=== PATIENT | female | born 1975 | race Caucasian/White ===

== ENCOUNTER → 2016-12-28 | Outpatient (CLI) | payer BC ==
[~2016-12-28] MED LIST: ACET-1175 PO; NAPR1TAB9 PO
[2016-12-30 14:29] LABS: QUANTIF TB AG-NIL <0.00 IU/ML; QUANTIFERON NIL 0.08 IU/ML
== END | disposition home or self-care (01) ==
LOC: C.LAB 13:45
PROVIDERS: ATTEND Internal Medicine
DX: Z20.1 Contact with and (suspected) exposure to tuberculosis (principal)

== ENCOUNTER → 2017-01-06 | Outpatient (CLI) | payer BC ==
--- NOTE | 2017-01-06 16:37 | DIAGNOSTIC IMAGING REPORT ---
TWO VIEW CHEST CLINICAL HISTORY: Fever. Sore throat. Atypical chest pain. FINDINGS: PA and lateral chest radiographs are compared to chest x-ray and chest CT dated 09/18/2015. The cardiomediastinal silhouette is unremarkable. The lungs and pleural spaces are clear. There is no pneumothorax. The bony thorax appears intact. IMPRESSION: No active disease in the chest. Electronically signed by: Marlon Hanson M.D. 01/06/2017 4:36 PM Dictated Date/Time: 01/06/2017 4:35 PM
== END | disposition home or self-care (01) ==
LOC: C.RAD 16:00
PROVIDERS: ATTEND Internal Medicine
DX: Z20.1 Contact with and (suspected) exposure to tuberculosis (principal)

== ENCOUNTER 2022-10-13 08:32 | Inpatient (IN) ==
--- NOTE | 2022-09-25 11:41 | PAT Medication Instructions ---
Medication Instructions Date of Service September 25, 2022 Home Medications cholecalciferol (vitamin D3) 50 mcg (2,000 unit) capsule 50 mcg PO HS melatonin 1 mg tablet 2 mg PO HS PRN valacyclovir 1 gram tablet 1,000 mg PO HS Take evening before surgery cholecalciferol (vitamin D3) 50 mcg (2,000 unit) capsule 50 mcg PO HS melatonin 1 mg tablet 2 mg PO HS PRN(if needed) valacyclovir 1 gram tablet 1,000 mg PO HS Other Notes NOTHING TO EAT OR DRINK AFTER MIDNIGHT. If you have any questions please call us at [phone] or [phone] or [phone] or [phone]
--- NOTE | 2022-09-29 11:07 | Anesthesiology Consultation ---
Date of Service September 29, 2022 Assessment & Plan (1) Encounter for pre-operative examination: - check urine test STAT am DOS. - Patient requests Dr. Banks. OR aware, message sent to anesthesia schedulers. Chart Review Chart Review: Acceptable Risk for Surgery and Patient seen in Pre Admission Testing Teaching & Discussion Pre-Anesthesia Teaching/Discussion Notes: Instructed NPO after midnight before surgery, except medications with 15 cc of water. Medication instructions provided according to the PAT guidelines. History Surgery Operation Date: 10/13/22 07:40 Proposed Procedures p L4-L5 Decompression and Fusion, Spinal Cord Monitoring - Jasen Pressley DO Height/Weight Height: 5 ft Weight: 52.3 kg Allergies Allergy/AdvReac Type Severity Reaction Status Date / Time nickel Allergy Mild dermatitis Verified 09/21/22 14:31 Medications Home Medications Medication Instructions Recorded Confirmed Last Taken cholecalciferol (vitamin D3) 50 50 mcg PO HS 02/09/20 09/21/22 02/10/20 mcg (2,000 unit) capsule melatonin 1 mg tablet 2 mg PO HS PRN Sleep 09/21/22 09/21/22 Unknown valacyclovir 1 gram tablet 1,000 mg PO HS 09/21/22 09/21/22 Unknown Past Medical History Medical History (Updated 09/29/22 @ 11:16 by Peggy Ojeda PA-C) Chronic back pain Constipation Degenerative disc disease History of anemia Migraine hx Patient denies h/o stroke, seizures, heart attack, heart failure, DM, HTN, blood clots or blood transfusions. Exercise / Class Metabolic Activity II 4-5 Yardwork/Stairs/Walk up hill (denies chest discomfort or shortness of breath with 1 FOS) Past Family History Family History Father Myocardial infarction Mother Myocardial infarction Other Coronary heart disease Hypertension No family history of adverse response to anesthesia Obesity Denies family history of Ovarian cancer Prostate cancer Breast cancer Colorectal cancer Past Surgical History Surgical History History of section x2 History of colonoscopy History of rectal surgery anal sphincter repair. S/P epidural steroid injection Foster teeth extracted Past Anesthesia History No Hx of Anesthesia Complications and No Family Hx of Anesthesia Complications History of PONV History of PONV (with ) and Hx of Motion Sickness Social History Smoking Status: Never smoker Do You Dip or Chew Tobacco: No Hx Alcohol Use: No Hx Substance Use: No substance use type: does not use Review of Systems Patient denies chest pain, shortness of breath, dyspnea on exertion, snoring, witnessed apneas, reflux, fever, chills, cough, wheezing, or palpitations. Physical Exam Vital Signs Vitals BP 117/79 P 65 SP02 98% on RA RESP 17 Physical Full cervical extension range of motion with slight pain at maximum extension TMD 3.5 finger breadths Mallampati Score 1 Dentition: one crown, denies chipped or loose teeth, caps, implants or bridges Lungs: normal respiratory effort. Good air movement, clear throughout to auscultation, no adventitious breath sounds Cardiac: regular rate and rhythm, no murmurs noted Carotid arteries: negative bruit bilat Lab Results Anesthesia Preop Results Results Anesthesia Widget: WBC 4.99 K/ul (4.8-10.8) 09/29/22 Hgb 12.3 g/dl (12.0-16.0) 09/29/22 Hct 37.1 % (37.0-47.0) 09/29/22 Plt 223 K/uL (130-400) 09/29/22 Na 137 mmol/L (136-145) 09/29/22 K 3.9 mmol/L (3.5-5.1) 09/29/22 Cl 105 mmol/L (98-107) 09/29/22 CO2 27 mmol/L (21-32) 09/29/22 BUN 12 mg/dl (6-23) 09/29/22 Creat 0.49 mg/dl (0.6-1.2) L 09/29/22 Glucose Level 83 mg/dl (70-99(Fasting)) 09/29/22 PT 10.7 Seconds (9.0-12.0) 09/29/22 PTT 27.4 Seconds (21.0-31.0) 09/29/22 INR 1.0 (0.9-1.1) 09/29/22 Urine Color Yellow 09/29/22 Urine Appearance Clear (Clear) 09/29/22 Urine pH 7.5 (4.5-7.5) 09/29/22 Urine Specific [place] 1.009 (1.000-1.030) 09/29/22 Urine Protein Negative (Negative) 09/29/22 Urine Glucose (UA) Negative (Negative) 09/29/22 Urine Ketones Negative (Negative) 09/29/22 Urine Blood Negative (Negative) 09/29/22 Urine Nitrite Negative (Negative) 09/29/22 Urine Bilirubin Negative (Negative) 09/29/22 Urine Urobilinogen Negative (Negative) 09/29/22 Urine Leukocyte Esterase Negative (Negative) 09/29/22 Blood Type O Positive 09/29/22 Antibody Screen NEGATIVE 09/29/22 Testing Electrocardiogram Date: 09/29/22 NSR, rate 62 bpm Chest X-Ray Date: 09/29/22 No acute chest disease COVID-19 Risk Screen Screening Information COVID-19 Screen Date: 09/29/22 Exposure 21 Days Family/Household +COVID Last 21 Days: No Exposure 10 Days Any COVID Exposure Last 10 Days: No Symptoms Last 10 Days Experienced COVID Sx Last 10 Days: No + COVID 0-90 Days COVID + in Last 0-90 Days: No
[~2022-10-13 08:32] MED LIST changes: -ACET-1175 PO; +ACETAMINOPHEN 500 MG TAB PO SCH; +CeleBREX 200 MG CAP PO SCH; +DEXAMETHASONE SOD INJ 4 MG/ML VIAL ONE; +GABAPENTIN 900 MG DOSE PO SCH; +LIDOCAINE 2% 2 ML VIAL/AMP(20MG/ML) INFIL ONE; +LR 15ML/HR IV SCH; +MIDAZOLAM HCL 1 MG/ML 2ML VIAL ONE; -NAPR1TAB9 PO; +ONDANSETRON INJ 2 MG/ML 2 ML VIAL ONE; +PROPOFOL IV EMULSION 10 MG/ML 20 ML VIAL IV ONE; +ROCURONIUM BROMIDE 10 MG/ML 5 ML VIAL IV ONE; +ceFAZolin 2000MG 2,000 MG/15 ML SYR IV SCH; +diphenhydrAMINE 50 MG/ML VIAL ONE; +fentaNYL citrate PF 100 MCG/2 ML VIAL ONE
[2022-10-13] MEDS ORDERED: fentaNYL citrate PF 100 MCG/2 ML VIAL IV PRN (09:25)
[2022-10-13] MEDS ORDERED: ATROPINE SULFATE 0.1 MG/ML 10ML SYR IV PRN (09:25)
[2022-10-13] MEDS ORDERED: ONDANSETRON INJ 2 MG/ML 2 ML VIAL IV PRN ×2 (09:25→12:51)
[2022-10-13] MEDS ORDERED: HYDROmorphone INJ 1 MG/ML SYRINGE IV PRN ×2 (09:25→12:51)
[2022-10-13] MEDS ORDERED: PROMETHAZINE HCL 6.25 MG in SODIUM CHLORIDE 0.9% 50 ML IV PRN (09:25)
[2022-10-13] MEDS ORDERED: ePHEDrine sulfate 50 MG/ML AMP IV PRN (09:25)
[2022-10-13] MEDS ORDERED: SCOPOLAMINE 1 MG TDSY TD STA (09:27)
--- NOTE | 2022-10-13 09:29 | History & Physical Bridge Note ---
Date of Service October 13, 2022 History & Physical Bridge Note I have examined the patient, reviewed the History & Physical and in the interval since the performance of the History & Physical I have noted the following changes of clinical significance: no changes noted
--- NOTE | 2022-10-13 09:30 | History & Physical Report ---
Date of Service October 13, 2022 Assessment & Plan (1) Neurogenic claudication due to lumbar spinal stenosis: Plan: L4-L5 decompression and fusion History of Present Illness Chief Complaint: Chronic persistent back pain Primary Care Provider: Alta Allen MD This is a 47-year-old female presents with chronic persistent back pain after failing extensive course of nonoperative care she is here for surgical invention. Allergies Allergy/AdvReac Type Severity Reaction Status Date / Time nickel Allergy Mild dermatitis Verified 10/13/22 08:48 Home Medications Medication Instructions Recorded Confirmed Type cholecalciferol (vitamin D3) 50 50 mcg PO HS 02/09/20 10/13/22 History mcg (2,000 unit) capsule melatonin 1 mg tablet 2 mg PO HS PRN Sleep 09/21/22 10/13/22 History valacyclovir 1 gram tablet 1,000 mg PO HS 09/21/22 10/13/22 History Past Med/Surg History Medical History Chronic back pain Constipation Degenerative disc disease History of anemia Migraine Surgical History History of section History of colonoscopy History of rectal surgery S/P epidural steroid injection [place] teeth extracted Family History Father Myocardial infarction Mother Myocardial infarction Other Coronary heart disease Hypertension No family history of adverse response to anesthesia Obesity Denies family history of Ovarian cancer Prostate cancer Breast cancer Colorectal cancer Social History Smoking Status: Never smoker Second Hand Exposure: No; Do You Dip or Chew Tobacco: No; Tobacco Cessation Education Requested by Patient: No Hx Alcohol Use: No Hx Substance Use: No Preferred Language: Kazakh Communication Ability: Effective 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 Beliefs That Will Affect Care: None marital status: Current Living Situation: Spouse and Family Current Living Situation Comment: and x2 sons current occupational status: employed Other Information That Helps Us Care for You: No Feels Safe at Home: Yes Safety Concerns: Feels Safe At This Time Childhood Exposure to Second-Hand Smoke: No Dental Care, Regularly: Yes Physical Activity Frequency: Daily Seatbelt Use: always Sunscreen Use: Yes Assistive Devices: None Physical Exam Physical Exam: Patient is alert and oriented Heart regular rhythm Lungs clear Results & Data Results & Data Vital Signs (Past 12 Hours) Vital Signs Temp Pulse Resp BP Pulse Ox O2 Del Method 10/13/22 08:51 36.5 C 72 13 152/89 H 98 Room Air
[2022-10-13] MEDS ORDERED: BUPIVACAINE/EPINEPHRINE 0.5% MPF 1:200,000 30 ML VIAL ONE (09:33)
[2022-10-13] MEDS ORDERED: ceFAZolin 330 MG/ML 1 GM VIAL ONE (09:33)
[2022-10-13] MEDS ORDERED: FAMOTIDINE/PF 20 MG/2 ML VIAL IV ONE (09:51)
[2022-10-13] MEDS ORDERED: HYDROmorphone INJ 2 MG/ML SYR/VIAL ONE (10:22)
[2022-10-13] MEDS ORDERED: FLOSEAL HEMOSTATIC MATRIX 10ML TOP ONE (10:47)
[2022-10-13] MEDS ORDERED: GLYCOPYRROLATE 0.2 MG/ML VIAL ONE (11:03)
[2022-10-13] MEDS ORDERED: NEOSTIGMINE METHYLSULFATE 1 MG/ML 10ML VIAL ONE (11:03)
[2022-10-13] MEDS ORDERED: ONDANSETRON INJ 2 MG/ML 2 ML VIAL ONE (11:03)
--- NOTE | 2022-10-13 11:10 | Operative Report ---
Post Operative Report Pre & Post Diagnosis Operation Date: 10/13/22 10:00 Pre-Op Diagnosis: Neurogenic claudication due to lumbar spinal stenosis Post-Op Diagnosis: Neurogenic claudication due to lumbar spinal stenosis I identified the patient and participated in the time-out.: Yes Procedure Operation Date: 10/13/22 10:00 Actual Procedures #1 lumbar decompression bilateral medial facetectomies and foraminotomies L4-5 #2 posterior spinal fusion L4-5 #3 placement of posterior instrumentation L4-5 #4 interbody fusion L4-5 #5 placement of Spira 10 x 22 mm cage at L4-L5. #6 placement locally harvested morselized autograft in the posterior gutters. #7 placement of I factor, LP times in the interbody space and posterior lateral gutters. Surgeon Jasen Pressley, Manager Project Zoe Weinstein Estimated Blood Loss 20 Findings Consistent with Post-Op Diagnosis Specimens None Indications This is a 47-year-old female presents above-mentioned diagnosis after failed course of nonoperative care she is here for surgical invention. Description of Procedure Patient was met with identified informed consent obtained. Patient was then taken to the operative suite underwent a patient placed in a prone position the [facility] top Rico frame. All bony promises well-padded eyes inspected to ensure no external pressure placed upon the. This point the lumbar spine was prepped and draped in a sterile fashion. Sharp dissection with the assistance of Bovie cautery performed down to and exposing the lamina and transverse processes of L4-L5. From caudal cephalad fashion complete laminectomy of L4 was performed including bilateral medial facetectomy and foraminotomies addressing all neural compression and stenosis. Pedicle screws were placed in L4-L5 bilaterally with assistance of fluoroscopy and by way of a transforaminal approach on the left complete discectomy L4-L5 was performed endplates curetted to subcortical bleeding bone and a 10 x 22 mm Spira cage filled with I factor tapped in position. Proper size rods were then placed and locked into position bilaterally. The transverse processes of L4 L5 burred to subcortically and bone. I factor combined with V toss was then placed in the posterior gutters. 10 round KAYLA drain inserted. The incision was then closed with 1 Vicryl to fascia 2-0 Vicryl subcutaneously and 4 Monocryl for final skin closure. Steri- Strips sterile dressings placed. Patient waken taken to PACU in stable condition. Please note spinal cord monitoring was last at the procedure no changes noted. Lastly Zoe Weinstein was present at the entire procedure involved in patient positioning complex portions of the surgery and final skin closure. I attest to the content of the Intraoperative Record and any orders documented therein. Any exceptions are noted below.
[2022-10-13] MEDS ORDERED: ROCURONIUM BROMIDE 10 MG/ML 5 ML VIAL IV ONE (12:19)
--- NOTE | 2022-10-13 12:28 | Fluoroscopy Report ---
FL lumbar spine 2-3V CLINICAL HISTORY: L4-L5 DECOMP/FUSION COMPARISON STUDY: None. FLUOROSCOPY TIME: 23 seconds FLUOROSCOPY IMAGES: 2 Ka,r: 13.7 mGy FINDINGS: Posterior decompression fusion at L4-5 with pedicle screws and rods. Hardware appears intac t. A disc spacer is in place. IMPRESSION: Fluoroscopic assistance as above. ACT 112: Negative or not required by law. Electronically signed by: Syed Fairchild M.D. 10/13/2022 12:27 PM
[2022-10-13] MEDS ORDERED: ACETAMINOPHEN 500 MG TAB PO PRN (12:51)
[2022-10-13] MEDS ORDERED: ACETAMINOPHEN 1,000 MG/100 ML VIAL IV PRN (12:51)
[2022-10-13] MEDS ORDERED: ALUMINUM/MAGNESIUM SUSP 30 ML UDC PO PRN (12:51)
[2022-10-13] MEDS ORDERED: PROMETHAZINE HCL 12.5 MG in SODIUM CHLORIDE 0.9% 50 ML IV PRN (12:51)
[2022-10-13] MEDS ORDERED: hydrOXYzine HCl 25 MG TAB PO PRN (12:51)
[2022-10-13] MEDS ORDERED: ONDANSETRON 4 MG OD TAB PO PRN (12:51)
[2022-10-13] MEDS ORDERED: LORazepam 0.5 MG TAB PO PRN (12:51)
[2022-10-13] MEDS ORDERED: DO NOT ADMINISTER FLU VACCINE PRN (12:51)
[2022-10-13] MEDS ORDERED: LORazepam 2 MG/1 ML VIAL IV PRN (12:51)
[2022-10-13] MEDS ORDERED: diphenhydrAMINE Capsule 25 MG CAP PO PRN (12:51)
[2022-10-13] MEDS ORDERED: METOCLOPRAMIDE HCL INJ 5 MG/ML 2 ML VIAL IV PRN (12:51)
[2022-10-13] MEDS ORDERED: NALOXONE HCL 0.4 MG/1 ML VIAL/CARP IV PRN (12:51)
[2022-10-13] MEDS ORDERED: bisacodyL 10 MG SUPP PR PRN (12:51)
[2022-10-13] MEDS ORDERED: DO NOT ADMINISTER PNEUMOCOCCAL VACCINE PRN (12:51)
[2022-10-13] MEDS ORDERED: SOD PHOSPHATE/SOD BIPHOSPHATE ENEMA 132 ML BTL PR PRN (12:51)
[2022-10-13] MEDS ORDERED: MAGNESIUM HYDROXIDE SUSP 30 ML UDC PO PRN (12:51)
[2022-10-13] MEDS ORDERED: FAMOTIDINE 20 MG TAB PO PRN (12:51)
--- NOTE | 2022-10-13 12:55 | Anesthesiology Progress Note ---
Date of Service October 13, 2022 Anesthesia Post Procedure Vital Signs Vital Signs: Temp Pulse Pulse Resp BP BP Pulse Ox 10/13/22 12:20 52 L 14 141/74 H 100 10/13/22 12:05 36.3 C L 50 L 13 148/89 H 100 10/13/22 11:55 49 L 16 135/81 100 10/13/22 11:45 50 L 21 157/86 H 100 10/13/22 11:35 50 L 14 141/88 H 100 10/13/22 11:27 36.3 C L 64 16 143/88 H 100 10/13/22 08:51 36.5 C 72 13 152/89 H 98 O2 Del Method O2 Flow Rate 10/13/22 12:20 Room Air 10/13/22 12:05 Room Air 10/13/22 11:55 Room Air 10/13/22 11:45 Oxymask 6 10/13/22 11:35 Oxymask 10 10/13/22 11:27 Oxymask 10 10/13/22 08:51 Room Air Pain Intensity Bilateral Lower Back: Pain Intensity: 4 Lower Back: Pain Intensity: 4 Transfer of Care Handoff Completed per policy Notes Mental Status: alert / awake / arousable and participated in evaluation Patient Amnestic to Procedure: Yes Nausea / Vomiting: adequately controlled Pain: adequately controlled Airway Patency, RR, SpO2: stable & adequate BP & HR: stable & adequate Hydration State: stable & adequate Anesthetic Complications: no major complications apparent and Pt Satisfied with anesthetic care
[2022-10-13] MEDS ORDERED: MELATONIN 3 MG TAB PO PRN (13:20)
[2022-10-13] MEDS: LACTATED RINGER'S 1,000 ML IV SCH (14:44)
[2022-10-13] MEDS: traMADol HCL 50 MG TABLET PO PRN (16:05)
[2022-10-13] MEDS: CHECK SCOPOLAMINE PATCH PLACEMENT SCH (16:06)
[2022-10-13] MEDS: ceFAZolin 1000MG 1,000 MG/7.5 ML SYR IV SCH (18:29)
[2022-10-13] MEDS: HYDROmorphone INJ 0.5 MG/0.5 ML SYR IV PRN (18:41)
[2022-10-13] MEDS: CHOLECALCIFEROL 1,000 UNITS 25 MCG TAB PO SCH (20:50)
[2022-10-13] MEDS: DOCUSATE SODIUM/SENNA 50/8.6MG TAB PO SCH (20:51)
[2022-10-13] MEDS: valACYclovir HCL 500 MG TABLET PO SCH (20:51)
[2022-10-14] MEDS: CHECK SCOPOLAMINE PATCH PLACEMENT SCH ×4 (01:38→23:05)
[2022-10-14] MEDS: ceFAZolin 1000MG 1,000 MG/7.5 ML SYR IV SCH (01:38)
[2022-10-14] MEDS: HYDROmorphone INJ 0.5 MG/0.5 ML SYR IV PRN ×3 (01:43→22:30)
[2022-10-14] MEDS: LACTATED RINGER'S 1,000 ML IV SCH (03:53)
[2022-10-14] MEDS: POLYETHYLENE (MIRALAX) 17 GM PACK PO SCH ×4 (05:51→23:06)
[2022-10-14 07:49] LABS: Basophils # (auto) 0.02 K/uL (0-0.2); Basophils % (auto) 0.3 %; Eosinophils # (auto) 0.03 K/uL (0-0.50); Eosinophils % (auto) 0.4 %; Hematocrit (blood only) 32.3 % (37.0-47.0); Hemoglobin 10.6 g/dl (12.0-16.0); Immature Granulocytes # (auto) 0.02 K/uL (0.01-0.20); Immature Granulocytes % (auto) 0.3 %; Lymphocytes % (auto) 13.1 %; Mean Corpuscular Hemoglobin 31.1 pg (25.0-34.0); Mean Corpuscular Hgb Conc 32.8 g/dL (32.0-36.0); Mean Corpuscular Volume 94.7 fL (80.0-100.0); Mean Platelet Volume 10.6 fL (9.4-12.4); Monocytes # (auto) 0.54 K/uL (0.11-0.59); Monocytes % (auto) 7.9 %; Neutrophils # (auto) 5.34 K/uL (1.40-6.50); Platelet Count 228 K/uL (130-400); RDW Coefficient of Variation 13.4 % (11.5-14.5); RDW Standard Deviation 46.9 fL (36.4-46.3); Red Blood Count 3.41 M/uL (4.20-5.40); White Blood Count 6.85 K/ul (4.8-10.8)
[2022-10-14 08:08] LABS: Calcium 8.8 mg/dl (8.6-10.3); Potassium 4.2 mmol/L (3.5-5.1)
[2022-10-14 08:14] LABS: BUN Creatinine Ratio 16.1 (10-20); Creatinine Clr Calc Pharmacy 87.3 ml/min; Est GFR (African American) 126.9 ml/min; Est GFR (Non-African American) 109.5 ml/min
[2022-10-14] MEDS: dexAMETHasone 6 MG in SYRINGE 0 ML IV SCH (08:18)
--- NOTE | 2022-10-14 09:53 | Orthopedic Progress Note ---
Date of Service October 14, 2022 Assessment & Plan (1) Neurogenic claudication due to lumbar spinal stenosis: Plan: At this point we will continue physical therapy monitor her KAYLA output hopefully discharge home in the next few days. Admission and Anticipated Discharge Date Admission Date: October 13, 2022 Subjective Patient's back pain is controlled she is having no leg pain. She has been up and ambulating with physical therapy and tolerating steps. Physical Exam Physical Exam: Patient is currently in bed. She is comfortable. KAYLA drain is functioning. Results & Data Vital Signs (Past 12 Hours) Vital Signs Temp Pulse Resp BP Pulse Ox O2 Del Method 10/14/22 07:38 36.8 C 66 16 115/69 98 Room Air 10/14/22 03:24 36.4 C L 65 18 143/85 H 99 Room Air 10/13/22 22:36 36.5 C 53 L 16 117/73 100 Room Air
[2022-10-14] MEDS: traMADol HCL 50 MG TABLET PO PRN (10:07)
[2022-10-14] MEDS: oxyCODONE HCL IR 5 MG TAB (IMMEDIATE RELEASE) PO PRN ×3 (11:34→20:17)
[2022-10-14] MEDS: CHOLECALCIFEROL 1,000 UNITS 25 MCG TAB PO SCH (20:19)
[2022-10-14] MEDS: DOCUSATE SODIUM/SENNA 50/8.6MG TAB PO SCH (20:19)
[2022-10-14] MEDS: valACYclovir HCL 500 MG TABLET PO SCH (20:19)
[2022-10-15] MEDS: POLYETHYLENE (MIRALAX) 17 GM PACK PO SCH ×2 (04:58→11:49)
[2022-10-15] MEDS: CHECK SCOPOLAMINE PATCH PLACEMENT SCH (08:03)
[2022-10-15] MEDS: traMADol HCL 50 MG TABLET PO PRN (08:07)
[2022-10-15] MEDS: dexAMETHasone 6 MG in SYRINGE 0 ML IV SCH (08:07)
--- NOTE | 2022-10-15 08:29 | Discharge Summary ---
Date of Service October 15, 2022 Admission HPI Per Admitting Provider This is a 47-year-old female presents with chronic persistent back pain after failing extensive course of nonoperative care she is here for surgical invention. Principal Diagnosis Lumbar spinal stenosis Discharge Data Allergies Allergy/AdvReac Type Severity Reaction Status Date / Time nickel Allergy Mild dermatitis Verified 10/13/22 08:48 Procedures Performed Operation Date: 10/13/22 10:00 Actual Procedures p L4-L5 Decompression and Fusion, Spinal Cord Monitoring - Jasen Pressley DO Ordered Studies 10/13/22 [place] lumbar spine 2-3V Routine Hospital Course (1) Neurogenic claudication due to lumbar spinal stenosis: Patient with limited motion fusion tolerated as well as taken to orthopedic floor postoperative. Postop day 1 she was up and ambulating progress postop day #2. KAYLA drain decreasing appropriate. Excellent strength testing. Pain well controlled. Simply discharged home. Discharge orders instructions found in chart for further review. Total Time Total Time Spent Total Time Spent (In Minutes): 20 minutes Discharge Plan Discharge Items Patient Disposition: Home - Self-Care Reason For Visit: POSTOP Discharge Diagnosis: Lumbar stenosis with radiculopathy Activity: As commented below Non-emergency contact: Primary Care Provider Call non-emergency contact if: you have any medication questions Follow-up/Referrals: Alta Allen MD [Primary Care Provider] - Diet: Regular Addtl Attending Provider Instructions: ACTIVITY RECOMMENDATIONS: SELF CARE INSTRUCTIONS AFTER THORACIC/LUMBAR FUSIONS 1. You may walk to your tolerance. It is good exercise for your legs and back. Expect some back and intermittent leg aches and pains. 2. You may perform "counter-top" level activities (make a sandwich, tono with a project, etc.). 3. No bending or lifting of more than 10 pounds or back twisting of any nature (roll like a log when turning in bed). 4. You may ride in a car for 20-30 minutes at a time. No driving until after your first visit with your doctor. 5. Frequent changes of position and restricting sitting to 30 minutes at a time will help limit the amount of back spasms and stiffness you may experience. 6. You may discontinue the use of ambulatory aids (cane, crutches, etc.) once your strength and confidence allow. 7. You may stretching press operator the shower and let water strike your incision when you arrive home at least once daily. Do not take a tub bath, sit in a hot tub or go into a swimming pool until after your first recheck in the office. SPECIAL CARE INSTRUCTIONS: VERY IMPORTANT TO READ AND REVIEW A. Your surgical incision has been closed with a cosmetic suture under the skin that will dissolve in about 6 weeks. In 14 days, you can use a pair of clean scissors and cut the suture that is left outside of the skin at the ends of your incision. 1. The small skin tapes can be removed 7 days after surgery if they have not fallen off by that point. 2. You may keep the wound open to air as much as possible to promote healing after post-op day number 5 unless told otherwise by your doctor. 3. If you think the wound looks like it is becoming infected (redness or worsening drainage) and/or you are experiencing fever, chill or worsening back pain and muscle spasms, contact the office so that we may evaluate you as soon as possible. B. Complications are uncommon, but please contact us if you have any signs or symptoms of: 1. wound infection (fever higher than 102.5 degrees F, redness, separation of wound, drainage, or increasing pain from the incision) 2. blood clots in legs (pain, swelling, redness and warmth in legs) 3. urinary tract infection (fever higher than 102.5 degrees F, burning upon urination or increased frequency of urination) 4. nerve problems (inability to walk on your toes or heels, numbness, loss of bowel or bladder control) 5. any other symptoms that concern you C. Please call the office at if you have any concerns or questions about your operation or recovery. D. No smoking! Smoking drastically decreases the chance of a solid fusion. E. Do not take any anti-inflammatory medications (Indocin, Advil, Motrin, Aspirin, Naprosyn, etc.) as these may inhibit the chance of a solid fusion. Tylenol is okay to take for pain. MANAGING PAIN AFTER SPINAL SURGERY 1. Narcotic medication is intended for short-term use and will be provided for surgical pain. Surgical pain usually lasts for a period of 4-6 weeks. Narcotic medication includes Percocet, Vicodin, Darvocet, Tylenol #3 or Lortab. 2. Longer-term pain is more appropriately treated with non-narcotic medication such as Tylenol ES. 3. Muscle spasm is not appropriately treated with narcotics. Muscle relaxers such as Soma, Flexeril or Skelaxin can be used along with Tylenol ES. 4. Remember that we all live with some "aches and pains". This is not unusual or uncommon after an injury or as we get older. a. Back pain is expected and may include muscle spasms for 4 to 6 weeks after surgery. The pain should gradually improve. If the pain worsens for no apparent reason, please contact the office. b. Intermittent leg pain may also be experienced and should not be concerned about unless it worsens for no apparent reason. If so, please contact the office. 5. We will provide appropriate medication within the normal guidelines of their prescribed use. We will also be very cautious and aware of potential abuse and extended duration of patients' medication needs. a. Pain medications are for your comfort and to assist with sleep and rest so that the tissue can heal. They are not provided in order to return to normal activity and should not be used through the day. To do so or worsening pain at night can result from ongoing tissue damage and development of tolerance to the prescribed medicine. 6. Please allow 2-3 days to process refills. Prescriptions will not be mailed but must be picked up at the office. FOLLOW UP VISIT: Keep your scheduled follow-up appointment. Any questions, please call the office at . Pending Studies at Discharge: No Stand-Alone Forms: My [facility], Smoking Cessation Medications and DC Order Prescriptions: New tramadol 50 mg tablet 50 mg PO Q6H PRN (Reason: pain, moderate) Qty: 30 0RF oxycodone 5 mg tablet 5 mg PO Q6H PRN (Reason: pain) Qty: 30 0RF Continued cholecalciferol (vitamin D3) 50 mcg (2,000 unit) capsule 50 mcg PO HS melatonin 1 mg Tablet 2 mg PO HS PRN (Reason: Sleep) valacyclovir 1 gram tablet 1,000 mg PO HS Discharge Orders: Discharge Order (Routine); Ordered 10/15/22 Ordered By: Jasen Pressley Admission Data Admit Date/Time: 10/13/22 11:12 Attending Provider: Jasen Pressley Admit Provider: Jasen Pressley Primary Care Provider: Alta Allen V.
[2022-10-15] MEDS: oxyCODONE HCL IR 5 MG TAB (IMMEDIATE RELEASE) PO PRN (11:22)
== END 2022-10-15 12:32 | disposition home or self-care (01) | DRG 455 ==
LOC: ASU 08:32 → 3E 11:12